=== PATIENT | male | born 1960 | race African-American/Black ===

== ENCOUNTER 2017-02-16 22:23 | Emergency (ER) | payer SELFPAY ==
[~2017-02-16] VITALS: Ht 182.9 cm; Wt 82.8 kg
[2017-02-16 22:31] VITALS: BP 112/75
[2017-02-16] MEDS ORDERED: GABA800T2 PO (22:41)
[2017-02-16] MEDS ORDERED: IBUPROFEN 200 MG TABLET ONE (22:50)
[2017-02-16] MEDS ORDERED: IBUPROFEN 200 MG TABLET PO ONE (23:00)
== END 2017-02-16 23:38 | disposition home or self-care (01) ==
LOC: ED 23:03
DX: S09.8XXA Other specified injuries of head, initial encounter (principal); M54.9 Dorsalgia, unspecified; M25.512 Pain in left shoulder; G89.29 Other chronic pain; W22.8XXA Striking against or struck by other objects, initial encounter; Y93.89 Activity, other specified; Y99.8 Other external cause status; Y92.89 Other specified places as the place of occurrence of the external cause
CPT/HCPCS: 99283

== ENCOUNTER 2017-02-20 09:47 | Emergency (ER) | payer SELFPAY ==
[~2017-02-20] VITALS: Ht 182.9 cm; Wt 90.3 kg
[~2017-02-20 09:47] MED LIST: GABA800T2 PO
[2017-02-20 09:49] VITALS: BP 135/83
[2017-02-20] MEDS ORDERED: CYCLOBENZAPRINE 10 MG TABLET PO PRN (10:30)
[2017-02-20] MEDS ORDERED: CYCLOBENZAPRINE 10 MG TABLET ONE (10:50)
== END 2017-02-20 11:40 | disposition home or self-care (01) ==
LOC: ED 11:29
DX: S09.90XA Unspecified injury of head, initial encounter (principal); S16.1XXA Strain of muscle, fascia and tendon at neck level, initial encounter; X58.XXXA Exposure to other specified factors, initial encounter; Y93.89 Activity, other specified; Y92.488 Other paved roadways as the place of occurrence of the external cause; Y99.8 Other external cause status
CPT/HCPCS: 70450; 72125

== ENCOUNTER 2017-03-01 20:17 | Emergency (ER) | payer SELFPAY ==
[~2017-03-01] VITALS: Ht 182.9 cm; Wt 86.7 kg
[2017-03-01] MEDS ORDERED: FAMOTIDINE 20 MG TABLET PO ONE (21:00)
[2017-03-01] MEDS ORDERED: MAALOX/HYOSCYAMINE/LIDOCAINE 45 ML BOTTLE PO ONE (21:00)
[2017-03-01 21:26] LABS: ASPARTATE AMINO TRANSFERASE 11 U/L (15-37); BLOOD UREA NITROGEN 14 mg/dL (7-18)
[2017-03-01] MEDS ORDERED: MAALOX/HYOSCYAMINE/LIDOCAINE 45 ML BOTTLE ONE (21:29)
[2017-03-01] MEDS ORDERED: FAMOTIDINE 20 MG TABLET ONE (21:29)
[2017-03-01 22:19] VITALS: BP 111/71
== END 2017-03-01 22:58 | disposition home or self-care (01) ==
LOC: ED 22:45
DX: K29.00 Acute gastritis without bleeding (principal); M25.512 Pain in left shoulder; M54.9 Dorsalgia, unspecified; G89.29 Other chronic pain
CPT/HCPCS: 36415; 76700; 80053; 83690; 85025; 99285